=== PATIENT | male | born 1965 | race Two or more races ===

== ENCOUNTER 2023-06-23 16:11 | Inpatient (IN) | payer MEDICARE, OTHER ==
[~2023-06-23] VITALS: Ht 165.1 cm; Wt 66.7 kg
[2023-06-23] MEDS ORDERED: TRAZ-182 PO (16:43)
[2023-06-23] MEDS ORDERED: HYDR50TA61 PO (16:43)
[2023-06-23] MEDS ORDERED: DOCU100C36 PO (16:43)
[2023-06-23] MEDS ORDERED: ACET-2605 PO (16:43)
[2023-06-23] MEDS ORDERED: CLOZ100T32 PO (16:43)
[2023-06-23] MEDS ORDERED: SENN-261 PO (16:43)
[2023-06-23] MEDS ORDERED: QUET25TA PO (16:43)
[2023-06-23] MEDS ORDERED: CLOZ200T PO (16:43)
[2023-06-23] MEDS ORDERED: SERT50TA PO (16:43)
[2023-06-23] MEDS ORDERED: BENZ0.5T43 PO (16:43)
[2023-06-23] MEDS ORDERED: PROP40TA7 PO (16:43)
[2023-06-23] MEDS ORDERED: METF-441 PO (16:43)
[2023-06-23] MEDS ORDERED: CLOZ50TA PO ×2 (17:17)
[2023-06-23] MEDS ORDERED: HALO100A2 IM (17:17)
[2023-06-23] MEDS ORDERED: MAGN400O6 PO (17:17)
[2023-06-23] MEDS ORDERED: HALO5SYR IM (17:17)
[2023-06-23] MEDS ORDERED: MAG-151 PO (17:17)
[2023-06-23] MEDS ORDERED: AMLO5TAB4 PO (17:17)
[2023-06-23] MEDS ORDERED: PROP10TA10 PO (17:17)
[2023-06-23 17:25] VITALS: BP 135/116; TEMP 99.1; O2SAT 98
[2023-06-23] MEDS ORDERED: BLOOD SUGAR DIAGNOSTIC 1 EACH STRIP IN ONE (17:30)
[2023-06-23] MEDS ORDERED: MAGNESIUM HYDROXIDE 30 ML UDC PO PRN ×2 (17:30→22:00)
[2023-06-23] MEDS ORDERED: MAG HYDROX/AL HYDROX/SIMETH 30 ML UDC PO PRN (17:30)
[2023-06-23] MEDS ORDERED: ACETAMINOPHEN 325 MG TABLET PO PRN (17:30)
[2023-06-23 20:00] VITALS: BP 128/78; TEMP 99.1; O2SAT 98
[2023-06-23] MEDS ORDERED: Medication Not On Formulary EA (Mag Hydrox/Aluminum Hyd/Simeth (Geri-Lanta Liquid) 30 ML PO PRN (22:00)
[2023-06-24] MEDS ORDERED: DEXTROSE 50%-WATER 50 ML DISP.SYRIN IV PRN
[2023-06-24 07:37] LABS: CHOLESTEROL 146 mg/dL (<200); HDL CHOLESTEROL 43 mg/dL (40-60); LDL 81 mg/dL (0-99); TRIGLYCERIDES 137 mg/dL (30-150)
[2023-06-24 07:41] LABS: ALBUMIN 3.5 g/dL (3.4-5.0); BILIRUBIN,TOTAL 0.4 mg/dL (0.2-1.0); CALCIUM, SERUM 8.9 mg/dL (8.5-10.1); CREATININE 0.6 mg/dL (0.6-1.3); POTASSIUM 3.8 mmol/L (3.5-5.1); TOTAL PROTEIN, SERUM 6.2 g/dL (6.4-8.2)
[2023-06-24 08:00] VITALS: BP 117/91; TEMP 98; O2SAT 97
[2023-06-24] MEDS: BLOOD SUGAR DIAGNOSTIC 1 EACH STRIP VI SCH ×4 (08:13→21:29)
[2023-06-24] MEDS ORDERED: BENZTROPINE MESYLATE (1 MG) 1 MG TABLET PO SCH (09:00)
[2023-06-24] MEDS: METFORMIN 850 MG TABLET PO SCH ×2 (09:37→17:09)
[2023-06-24] MEDS: PROPRANOLOL HCL 10 MG TABLET PO SCH ×2 (09:38→17:10)
[2023-06-24] MEDS: AMLODIPINE BESYLATE 5 MG TABLET PO SCH (09:38)
[2023-06-24] MEDS: BENZTROPINE MESYLATE (1 MG) 1 MG TABLET PO SCH ×2 (09:39→17:09)
[2023-06-24] MEDS: CLOZAPINE 25 MG TABLET PO SCH ×2 (12:17→17:10)
[2023-06-24 16:00] VITALS: BP 118/76; TEMP 97.8; O2SAT 97
[2023-06-24 17:16] LABS: CREATININE 0.7 mg/dL (0.6-1.3)
[2023-06-24] MEDS: INSULIN REGULAR, HUMAN 100 UNIT/ML 3 ML VIAL SQ PRN (18:12)
[2023-06-24 20:31] VITALS: BP 110/77; TEMP 97.8; O2SAT 98
[2023-06-25 08:00] VITALS: BP 139/95; TEMP 97.9; O2SAT 97
[2023-06-25] MEDS: BLOOD SUGAR DIAGNOSTIC 1 EACH STRIP VI SCH ×4 (08:01→21:42)
[2023-06-25] MEDS: INSULIN REGULAR, HUMAN 100 UNIT/ML 3 ML VIAL SQ PRN ×2 (08:08→16:38)
[2023-06-25] MEDS: BENZTROPINE MESYLATE (1 MG) 1 MG TABLET PO SCH ×2 (08:10→16:08)
[2023-06-25] MEDS: METFORMIN 850 MG TABLET PO SCH ×2 (08:10→17:00)
[2023-06-25] MEDS: AMLODIPINE BESYLATE 5 MG TABLET PO SCH (08:10)
[2023-06-25] MEDS: CLOZAPINE 25 MG TABLET PO SCH ×2 (08:11→16:08)
[2023-06-25] MEDS: PROPRANOLOL HCL 10 MG TABLET PO SCH ×2 (08:11→16:08)
[2023-06-25 16:00] VITALS: BP 127/72; TEMP 98.6; O2SAT 97
[2023-06-25 20:02] VITALS: BP 114/88; TEMP 98; O2SAT 98
[2023-06-25] MEDS: *INSULIN REGULAR(HUMULIN R)HUM 100 UNIT/ML VIAL SQ PRN (21:44)
[2023-06-26] MEDS: BLOOD SUGAR DIAGNOSTIC 1 EACH STRIP VI SCH ×4 (07:40→21:09)
[2023-06-26 08:00] VITALS: BP 110/66; TEMP 97.8; O2SAT 96
[2023-06-26] MEDS: INSULIN REGULAR, HUMAN 100 UNIT/ML 3 ML VIAL SQ PRN ×2 (08:21→17:12)
[2023-06-26] MEDS: METFORMIN 850 MG TABLET PO SCH ×2 (08:27→17:10)
[2023-06-26] MEDS: PROPRANOLOL HCL 10 MG TABLET PO SCH ×2 (08:27→16:48)
[2023-06-26] MEDS: CLOZAPINE 25 MG TABLET PO SCH ×2 (08:27→16:47)
[2023-06-26] MEDS: AMLODIPINE BESYLATE 5 MG TABLET PO SCH (08:27)
[2023-06-26] MEDS: BENZTROPINE MESYLATE (1 MG) 1 MG TABLET PO SCH ×2 (08:28→16:47)
[2023-06-26 16:00] VITALS: BP 110/71; TEMP 97.8; O2SAT 94
[2023-06-26 20:01] VITALS: BP 136/83; TEMP 98.4; O2SAT 100
[2023-06-26] MEDS: TEMAZEPAM 7.5 MG CAPSULE PO PRN (21:03)
[2023-06-27] MEDS: BLOOD SUGAR DIAGNOSTIC 1 EACH STRIP VI SCH ×4 (07:43→22:23)
[2023-06-27] MEDS: METFORMIN 850 MG TABLET PO SCH ×2 (07:56→17:00)
[2023-06-27 08:00] VITALS: BP 130/80; TEMP 98.6; O2SAT 98
[2023-06-27] MEDS: CLOZAPINE 25 MG TABLET PO SCH ×2 (08:14→16:34)
[2023-06-27] MEDS: BENZTROPINE MESYLATE (1 MG) 1 MG TABLET PO SCH ×2 (08:14→16:34)
[2023-06-27] MEDS: PROPRANOLOL HCL 10 MG TABLET PO SCH ×2 (08:14→16:35)
[2023-06-27] MEDS: AMLODIPINE BESYLATE 5 MG TABLET PO SCH (08:15)
[2023-06-27] MEDS: INSULIN REGULAR, HUMAN 100 UNIT/ML 3 ML VIAL SQ PRN (11:23)
[2023-06-27 16:37] VITALS: BP 122/83; TEMP 98.8; O2SAT 97
[2023-06-27] MEDS: clonazePAM 0.5 MG TABLET PO PRN (17:12)
[2023-06-27 19:27] VITALS: BP 114/85; TEMP 99; O2SAT 98
[2023-06-27] MEDS: TEMAZEPAM 7.5 MG CAPSULE PO PRN (22:32)
[2023-06-27] MEDS: *INSULIN REGULAR(HUMULIN R)HUM 100 UNIT/ML VIAL SQ PRN (22:35)
[2023-06-28] MEDS: BLOOD SUGAR DIAGNOSTIC 1 EACH STRIP VI SCH ×4 (07:29→21:26)
[2023-06-28 08:00] VITALS: BP 120/79; TEMP 97.9; O2SAT 98
[2023-06-28] MEDS: METFORMIN 850 MG TABLET PO SCH ×2 (08:23→18:23)
[2023-06-28] MEDS: BENZTROPINE MESYLATE (1 MG) 1 MG TABLET PO SCH ×2 (08:24→16:17)
[2023-06-28] MEDS: CLOZAPINE 25 MG TABLET PO SCH ×2 (08:24→16:17)
[2023-06-28] MEDS: PROPRANOLOL HCL 10 MG TABLET PO SCH ×2 (08:25→16:17)
[2023-06-28] MEDS: AMLODIPINE BESYLATE 5 MG TABLET PO SCH (08:25)
[2023-06-28] MEDS: INSULIN REGULAR, HUMAN 100 UNIT/ML 3 ML VIAL SQ PRN (08:50)
[2023-06-28] MEDS: LEVOTHYROXINE SODIUM 25 MCG TABLET PO SCH (09:51)
[2023-06-28 16:00] VITALS: BP 115/72; TEMP 98.2; O2SAT 97
[2023-06-28] MEDS: *INSULIN REGULAR(HUMULIN R)HUM 100 UNIT/ML VIAL SQ PRN (21:29)
[2023-06-28] MEDS: clonazePAM 0.5 MG TABLET PO PRN (21:42)
[2023-06-29] MEDS: BLOOD SUGAR DIAGNOSTIC 1 EACH STRIP VI SCH ×4 (07:24→21:27)
[2023-06-29 08:00] VITALS: BP 99/63; TEMP 97.9; O2SAT 97
[2023-06-29] MEDS: PROPRANOLOL HCL 10 MG TABLET PO SCH ×2 (08:16→16:35)
[2023-06-29] MEDS: CLOZAPINE 25 MG TABLET PO SCH ×2 (08:16→16:34)
[2023-06-29] MEDS: LEVOTHYROXINE SODIUM 25 MCG TABLET PO SCH (08:16)
[2023-06-29] MEDS: BENZTROPINE MESYLATE (1 MG) 1 MG TABLET PO SCH ×2 (08:16→16:35)
[2023-06-29] MEDS: METFORMIN 850 MG TABLET PO SCH ×2 (08:16→17:10)
[2023-06-29] MEDS: AMLODIPINE BESYLATE 5 MG TABLET PO SCH (08:17)
[2023-06-29 16:00] VITALS: BP 110/76; TEMP 99.1; O2SAT 99
[2023-06-29] MEDS: INSULIN REGULAR, HUMAN 100 UNIT/ML 3 ML VIAL SQ PRN (17:09)
[2023-06-29 20:44] VITALS: BP 123/89; TEMP 98.4; O2SAT 99
[2023-06-29] MEDS: TEMAZEPAM 7.5 MG CAPSULE PO PRN (21:29)
[2023-06-30] MEDS: BLOOD SUGAR DIAGNOSTIC 1 EACH STRIP VI SCH ×4 (07:33→21:13)
[2023-06-30] MEDS: INSULIN REGULAR, HUMAN 100 UNIT/ML 3 ML VIAL SQ PRN ×2 (07:34→17:35)
[2023-06-30 08:00] VITALS: BP 102/65; TEMP 97.8; O2SAT 100
[2023-06-30] MEDS: LEVOTHYROXINE SODIUM 25 MCG TABLET PO SCH (08:18)
[2023-06-30] MEDS: CLOZAPINE 25 MG TABLET PO SCH ×2 (08:18→16:20)
[2023-06-30] MEDS: AMLODIPINE BESYLATE 5 MG TABLET PO SCH (08:19)
[2023-06-30] MEDS: METFORMIN 850 MG TABLET PO SCH ×2 (08:19→17:18)
[2023-06-30] MEDS: BENZTROPINE MESYLATE (1 MG) 1 MG TABLET PO SCH ×2 (08:19→16:20)
[2023-06-30] MEDS: PROPRANOLOL HCL 10 MG TABLET PO SCH ×2 (08:19→16:21)
[2023-06-30] MEDS ORDERED: LEVOTHYROXINE SODIUM 25 MCG TABLET PO SCH (09:00)
[2023-06-30 16:00] VITALS: BP 101/78; TEMP 98.2; O2SAT 98
[2023-06-30 20:00] VITALS: BP 149/96; TEMP 98.5; O2SAT 95
[2023-06-30] MEDS: clonazePAM 0.5 MG TABLET PO PRN (21:20)
[2023-07-01] MEDS: BLOOD SUGAR DIAGNOSTIC 1 EACH STRIP VI SCH ×4 (07:35→21:05)
[2023-07-01 08:00] VITALS: BP 112/71; TEMP 98.4; O2SAT 98
[2023-07-01] MEDS: METFORMIN 850 MG TABLET PO SCH ×2 (08:02→17:42)
[2023-07-01] MEDS: AMLODIPINE BESYLATE 5 MG TABLET PO SCH (08:02)
[2023-07-01] MEDS: PROPRANOLOL HCL 10 MG TABLET PO SCH ×2 (08:03→16:35)
[2023-07-01] MEDS: BENZTROPINE MESYLATE (1 MG) 1 MG TABLET PO SCH ×2 (08:03→16:36)
[2023-07-01] MEDS: LEVOTHYROXINE SODIUM 25 MCG TABLET PO SCH (08:03)
[2023-07-01] MEDS: CLOZAPINE 25 MG TABLET PO SCH ×2 (08:04→16:35)
[2023-07-01 16:00] VITALS: BP 119/63; TEMP 98; O2SAT 96
[2023-07-01] MEDS: INSULIN REGULAR, HUMAN 100 UNIT/ML 3 ML VIAL SQ PRN (17:43)
[2023-07-01 20:02] VITALS: BP 116/75; TEMP 98.2; O2SAT 99
[2023-07-02] MEDS: TEMAZEPAM 7.5 MG CAPSULE PO PRN (01:49)
[2023-07-02] MEDS: BLOOD SUGAR DIAGNOSTIC 1 EACH STRIP VI SCH ×4 (06:41→21:52)
[2023-07-02 08:00] VITALS: BP 106/72; TEMP 98.2; O2SAT 96
[2023-07-02] MEDS: CLOZAPINE 25 MG TABLET PO SCH ×2 (08:13→17:05)
[2023-07-02] MEDS: LEVOTHYROXINE SODIUM 25 MCG TABLET PO SCH (08:13)
[2023-07-02] MEDS: BENZTROPINE MESYLATE (1 MG) 1 MG TABLET PO SCH ×2 (08:13→17:12)
[2023-07-02] MEDS: METFORMIN 850 MG TABLET PO SCH ×2 (08:13→17:04)
[2023-07-02] MEDS: PROPRANOLOL HCL 10 MG TABLET PO SCH ×2 (08:16→17:09)
[2023-07-02] MEDS: AMLODIPINE BESYLATE 5 MG TABLET PO SCH (08:17)
[2023-07-02] MEDS: INSULIN REGULAR, HUMAN 100 UNIT/ML 3 ML VIAL SQ PRN ×2 (13:08→18:11)
[2023-07-02 16:00] VITALS: BP 100/74; TEMP 97.7; O2SAT 99
[2023-07-02] MEDS: *INSULIN REGULAR(HUMULIN R)HUM 100 UNIT/ML VIAL SQ PRN ×2 (17:10→22:26)
[2023-07-02 21:42] VITALS: BP 106/62; TEMP 97.9; O2SAT 97
[2023-07-03] MEDS: BLOOD SUGAR DIAGNOSTIC 1 EACH STRIP VI SCH ×2 (06:49→11:33)
[2023-07-03] MEDS: LEVOTHYROXINE SODIUM 25 MCG TABLET PO SCH (07:49)
[2023-07-03 08:00] VITALS: BP 117/81; TEMP 97.9; O2SAT 98
[2023-07-03 08:01] VITALS: BP 117/81
[2023-07-03] MEDS: AMLODIPINE BESYLATE 5 MG TABLET PO SCH (08:01)
[2023-07-03] MEDS: METFORMIN 850 MG TABLET PO SCH (08:01)
[2023-07-03] MEDS: CLOZAPINE 25 MG TABLET PO SCH (08:01)
[2023-07-03] MEDS: BENZTROPINE MESYLATE (1 MG) 1 MG TABLET PO SCH (08:01)
[2023-07-03] MEDS: PROPRANOLOL HCL 10 MG TABLET PO SCH (08:01)
[2023-07-12] MEDS ORDERED: HALOPERIDOL DECANOATE IM 100 MG/ML AMPUL IM ONE (08:30)
== END 2023-07-03 14:45 | DRG 885 ==
LOC: GPS 16:11
PROVIDERS: ADMIT Psychiatry & Neurology Psychiatry; ATTEND Student in an Organized Health Care Education/Training Program
DX: F20.0 Paranoid schizophrenia (principal); E11.9 Type 2 diabetes mellitus without complications; E03.9 Hypothyroidism, unspecified; I10 Essential (primary) hypertension; Z20.822 Contact with and (suspected) exposure to COVID-19; Z73.6 Limitation of activities due to disability; Z79.84 Long term (current) use of oral hypoglycemic drugs
CPT/HCPCS: 36415; 76536-TC; 80053-TC; 80061-TC; 82565-TC; 82962-TC; 84439-TC; 84443-TC; 84481; J1631; J1815